=== PATIENT | male | born 1955 | race Caucasian/White ===

== ENCOUNTER 2019-11-22 15:29 | Emergency (ER) | payer MEDICARE, MEDICAID ==
[~2019-11-22] VITALS: Ht 177.8 cm; Wt 75.0 kg
[2019-11-22 17:42] LABS: BASOPHILS % 0.5 % (0.0-2.0); HEMATOCRIT. 44.5 % (42.0-52.0); HEMOGLOBIN. 15.7 g/dL (14.0-18.0); LYMPHOCYTES % 19.9 % (20.0-50.0); MEAN CORPUSCULAR HEMOGLOBIN 36.7 pg (28.0-32.0); MEAN CORPUSCULAR VOLUME 103.8 fL (80.0-94.0); MONOCYTES % 9.2 % (2.0-8.0); NEUTROPHILS % 69.4 % (40.0-76.0); PLATELET 226 x1000/uL (130-400); RED BLOOD CELL COUNT 4.29 mill/uL (4.7-6.1)
[2019-11-22 17:48] LABS: CHLORIDE 111 mEq/L (98-107)
[2019-11-22 17:51] LABS: ETHANOL BLOOD < 10 mg/dL
[2019-11-22] MEDS ORDERED: MAGNESIUM/ALUMINUM HYDROXIDE/SIMETHICONE 30ML UDC PO ONE (20:00)
[2019-11-22] MEDS ORDERED: ASPIRIN 81MG TABLET PO ONE (20:00)
[2019-11-22] MEDS ORDERED: VISCOUS LIDOCAINE 2% 15 ML UDC PO ONE (20:00)
[2019-11-22 21:44] VITALS: BP 169/91
== END 2019-11-22 21:59 | disposition home or self-care (01) ==
LOC: ER 15:29
DX: R07.89 Other chest pain (principal)
CPT/HCPCS: 36415; 71045; 80053; 80320; 83880; 84484; 85025; 93005; 99285; G0480

== ENCOUNTER 2023-07-01 12:54 | Emergency (ER) | payer MEDICARE, MEDICAID ==
[~2023-07-01] VITALS: Ht 170.2 cm; Wt 68.0 kg
[~2023-07-01 12:54] MED LIST: ABAC1TAB14 MT; ASPI-1406 MT; ATOR10TA69 MT; BUPR150T3 PO; CALC-1098 PO; GABA-529 PO; LISI10TA26 PO; [UNRECOGNIZED DRUG - CODE] IM; [UNRECOGNIZED DRUG - CODE] TP
[2023-07-01 12:58] VITALS: O2SAT 100
[2023-07-01 14:19] LABS: CLARITY URINE CLEAR (CLEAR); COLOR URINE YELLOW (YELLOW); GLUCOSE URINE NEGATIVE (NEGATIVE); KETONES URINE NEGATIVE (NEGATIVE); LEUKOCYTE ESTERASE URINE NEGATIVE (NEGATIVE); NITRITE URINE NEGATIVE (NEGATIVE); OCCULT BLOOD URINE TRACE (NEGATIVE); PROTEIN URINE TRACE (NEGATIVE); UROBILINOGEN URINE 0.2 E.U./dL (0.2-1.0)
[2023-07-01 14:24] LABS: BASOPHILS % 0.7 % (0.0-2.0); HEMATOCRIT. 45.1 % (42.0-52.0); LYMPHOCYTES % 20.3 % (20.0-50.0); MEAN CORPUSCULAR HEMOGLOBIN 32.7 pg (28.0-32.0); MEAN CORPUSCULAR HGB CONC 33.3 g/dL (31.0-37.0); MEAN CORPUSCULAR VOLUME 98.2 fL (80.0-94.0); MEAN PLATELET VOLUME 7.4 fl (7.4-10.4); MONOCYTES % 6.3 % (2.0-8.0); NEUTROPHILS % 71.7 % (40.0-76.0); PLATELET 328 x1000/uL (130-400); RED BLOOD CELL COUNT 4.59 mill/uL (4.7-6.1); RED CELL DISTRIBUTION WIDTH 14.5 % (11.6-14.6); WHITE BLOOD COUNT 7.3 x1000/uL (4.5-11.0)
[2023-07-01 14:50] LABS: ALANINE AMINOTRANSFERASE 14 IU/L (10-49); ALBUMIN 4.4 g/dL (3.2-4.8); ASPARTATE AMINOTRANSFERASE 20 IU/L (<34); BILIRUBIN TOTAL 0.8 mg/dL (0.1-1.0); CALCIUM 9.1 mg/dL (8.7-10.4); CARBON DIOXIDE 25 mEq/L (21-32); CHLORIDE 105 mEq/L (98-107); CREATININE 0.9 mg/dL (0.6-1.3); GLUCOSE 111 mg/dL (70-105); POTASSIUM 3.2 mEq/L (3.5-5.1); SODIUM 140 mEq/L (136-145); TROPONIN I HIGH SENSITIVITY 17 ng/L (3.0-53); UREA NITROGEN BLOOD 8 mg/dL (9-23)
[2023-07-01 14:53] LABS: BACTERIA URINE TRACE; RBC URINE 0-2 /hpf (0-2); SQUAMOUS EPITHELIAL CELL URINE NONE SEEN /lpf (RARE/1+); WBC URINE 0-2 /hpf (0-2)
[2023-07-01] MEDS ORDERED: HYDROCODONE/ACETAMINOPHEN 5/325MG TABLET PO ONE (16:30)
[2023-07-01] MEDS ORDERED: ASPI-986 MT (20:30)
[2023-07-01] MEDS ORDERED: NITR0.4T49 SL (20:30)
[2023-07-01] MEDS ORDERED: TOPUD MT (20:30)
[2023-07-01] MEDS ORDERED: HYDROCODONE/ACETAMINOPHEN 5/325MG TABLET PO NR (21:30)
[2023-07-01 21:32] VITALS: BP 166/92; PULSE 74; RESP 20; TEMP 98.8
[2023-07-01 21:37] LABS: TROPONIN I HIGH SENSITIVITY 14 ng/L (3.0-53)
== END 2023-07-01 21:40 | disposition home or self-care (01) ==
LOC: ER 12:54
DX: R07.9 Chest pain, unspecified (principal); I10 Essential (primary) hypertension; F19.90 Other psychoactive substance use, unspecified, uncomplicated; F10.20 Alcohol dependence, uncomplicated; Y90.9 Presence of alcohol in blood, level not specified
CPT/HCPCS: 36415; 71045; 80053; 81003; 83880; 84484; 85025; 93005; 99285

== ENCOUNTER 2023-11-02 14:00 | Inpatient (IN) | payer MEDICARE, MEDICAID ==
[~2023-11-02] VITALS: Ht 182.9 cm; Wt 65.8 kg
[2023-11-02] VITALS (16 sets, daily range): BP systolic 130–170; BP diastolic 68–84; PULSE 63–86; RESP 12–27; TEMP 98.5
[~2023-11-02 14:00] MED LIST changes: +ASPI-986 MT; +CYCLO LEFTEYE; +GATI2.5D8 RIGHTEYE; +NEOM7.5D8 LEFTEYE; +NITR0.4T49 SL; +PRED5DRO22 LEFTEYE; +TOPUD MT
[2023-11-02] MEDS: DILTIAZEM HCL 5MG/ML 5ML VIAL IV ONE (14:41)
[2023-11-02] MEDS: DILTIAZEM HCL 125 MG in DEXT 5% WATER 100 ML IV ONE (15:29)
[2023-11-02 15:58] LABS: CHLORIDE 111 mEq/L (98-107); POTASSIUM 3.7 mEq/L (3.5-5.1); SODIUM 140 mEq/L (136-145)
[2023-11-02 15:59] LABS: CARBON DIOXIDE 21 mEq/L (21-32)
[2023-11-02 16:00] LABS: CALCIUM 9.6 mg/dL (8.7-10.4)
[2023-11-02 16:02] LABS: BASOPHILS % 1.1 % (0.0-2.0); DIFFERENTIAL COMMENT 0; HEMATOCRIT. 38.7 % (42.0-52.0); HEMOGLOBIN. 13.3 g/dL (14.0-18.0); LYMPHOCYTES % 15.5 % (20.0-50.0); MEAN CORPUSCULAR HEMOGLOBIN 35.7 pg (28.0-32.0); MEAN CORPUSCULAR HGB CONC 34.3 g/dL (31.0-37.0); MEAN CORPUSCULAR VOLUME 104.2 fL (80.0-94.0); MEAN PLATELET VOLUME 7.7 fl (7.4-10.4); MONOCYTES % 7.6 % (2.0-8.0); NEUTROPHILS % 74.8 % (40.0-76.0); PLATELET 280 x1000/uL (130-400); RED BLOOD CELL COUNT 3.71 mill/uL (4.7-6.1); RED CELL DISTRIBUTION WIDTH 14.8 % (11.6-14.6); WHITE BLOOD COUNT 7.6 x1000/uL (4.5-11.0)
[2023-11-02 16:04] LABS: CREATININE 0.9 mg/dL (0.6-1.3); GLUCOSE 121 mg/dL (70-105); UREA NITROGEN BLOOD 13 mg/dL (9-23)
[2023-11-02 16:06] LABS: TROPONIN I HIGH SENSITIVITY 29 ng/L (3.0-53)
[2023-11-02 16:22] LABS: INR 0.9; PROTHROMBIN TIME 10.2 sec (9.6-11.0)
[2023-11-02 17:03] LABS: TROPONIN I HIGH SENSITIVITY 30 ng/L (3.0-53)
[2023-11-02 20:31] LABS: TROPONIN I HIGH SENSITIVITY 25 ng/L (3.0-53)
[2023-11-03] VITALS (71 sets, daily range): BP systolic 115–156; BP diastolic 63–99; PULSE 57–92; RESP 12–30; TEMP 98.2–98.5
[2023-11-03] MEDS: DILTIAZEM HCL 30MG TABLET PO SCH (00:13)
[2023-11-03 06:14] LABS: BASOPHILS % 0.8 % (0.0-2.0); DIFFERENTIAL COMMENT 0; HEMATOCRIT. 35.6 % (42.0-52.0); HEMOGLOBIN. 12.1 g/dL (14.0-18.0); LYMPHOCYTES % 28.9 % (20.0-50.0); MEAN CORPUSCULAR HEMOGLOBIN 35.5 pg (28.0-32.0); MEAN CORPUSCULAR VOLUME 104.3 fL (80.0-94.0); MEAN PLATELET VOLUME 7.9 fl (7.4-10.4); MONOCYTES % 8.5 % (2.0-8.0); NEUTROPHILS % 59.8 % (40.0-76.0); PLATELET 257 x1000/uL (130-400); RED BLOOD CELL COUNT 3.42 mill/uL (4.7-6.1); WHITE BLOOD COUNT 5.8 x1000/uL (4.5-11.0)
[2023-11-03 06:36] LABS: CHLORIDE 108 mEq/L (98-107); POTASSIUM 3.3 mEq/L (3.5-5.1); SODIUM 138 mEq/L (136-145)
[2023-11-03 06:40] LABS: CARBON DIOXIDE 23 mEq/L (21-32)
[2023-11-03 06:42] LABS: CALCIUM 9.4 mg/dL (8.7-10.4)
[2023-11-03 06:47] LABS: CREATININE 0.9 mg/dL (0.6-1.3); GLUCOSE 89 mg/dL (70-105); TRIGLYCERIDE 74 mg/dL (0-150); UREA NITROGEN BLOOD 9 mg/dL (9-23)
[2023-11-03 06:48] LABS: LDL CHOLESTEROL 35 mg/dL (5-100)
[2023-11-03 06:49] LABS: CHOLESTEROL 192 mg/dL (<200); PHOSPHORUS 3.3 mg/dL (2.5-4.9)
[2023-11-03 09:03] LABS: HDL CHOLESTEROL 137 mg/dL (>55)
[2023-11-03] MEDS: APIXABAN 5 MG TABLET PO SCH (09:21)
[2023-11-03] MEDS: ASPIRIN 81MG TABLET PO SCH (09:22)
[2023-11-03] MEDS ORDERED: ONDANSETRON HCL 4MG/2ML INJ IV PRN (10:00)
[2023-11-03] MEDS ORDERED: DOCUSATE SODIUM 100MG CAPSULE PO PRN (10:00)
[2023-11-03] MEDS ORDERED: ACETAMINOPHEN 325MG TABLET PO PRN (10:00)
[2023-11-03] MEDS ORDERED: IPRATROPIUM/ALBUTEROL 0.5-3(2.5)MG/3ML NEB HHN PRN (10:00)
[2023-11-03] MEDS: POTASSIUM CHLORIDE 20MEQ TABLET SR PO NR (11:22)
[2023-11-03 11:27] LABS: T4 FREE 1.17 ng/dL (0.89-1.76)
[2023-11-03 11:28] LABS: THYROID STIMULATING HORMONE 0.66 uIU/mL (0.55-4.78)
[2023-11-03] MEDS: ACETAMINOPHEN 325MG TABLET PO PRN (19:31)
[2023-11-03] MEDS: HYDROCODONE/ACETAMINOPHEN 7.5/325MG TABLET PO PRN (21:06)
[2023-11-04] VITALS (19 sets, daily range): BP systolic 93–149; BP diastolic 65–85; PULSE 55–89; RESP 12–22; TEMP 97.5–98.9
[2023-11-04 08:52] LABS: DIFFERENTIAL COMMENT 0; EOSINOPHILS % 3.1 % (0.0-5.0); HEMATOCRIT. 39.5 % (42.0-52.0); HEMOGLOBIN. 13.5 g/dL (14.0-18.0); LYMPHOCYTES % 24.8 % (20.0-50.0); MEAN CORPUSCULAR HEMOGLOBIN 34.9 pg (28.0-32.0); MEAN CORPUSCULAR VOLUME 102.6 fL (80.0-94.0); MEAN PLATELET VOLUME 7.9 fl (7.4-10.4); MONOCYTES % 7.4 % (2.0-8.0); NEUTROPHILS % 63.7 % (40.0-76.0); PLATELET 245 x1000/uL (130-400); RED BLOOD CELL COUNT 3.85 mill/uL (4.7-6.1); RED CELL DISTRIBUTION WIDTH 14.9 % (11.6-14.6); WHITE BLOOD COUNT 6.1 x1000/uL (4.5-11.0)
[2023-11-04 08:56] LABS: CARBON DIOXIDE 26 mEq/L (21-32); CHLORIDE 105 mEq/L (98-107); POTASSIUM 3.8 mEq/L (3.5-5.1); SODIUM 140 mEq/L (136-145)
[2023-11-04 08:57] LABS: CALCIUM 9.6 mg/dL (8.7-10.4)
[2023-11-04 09:01] LABS: CREATININE 0.8 mg/dL (0.6-1.3)
[2023-11-04 09:02] LABS: GLUCOSE 94 mg/dL (70-105); UREA NITROGEN BLOOD 10 mg/dL (9-23)
[2023-11-04] MEDS ORDERED: DILT240C96 PO (14:26)
[2023-11-04] MEDS ORDERED: DOCU-347 PO (14:26)
[2023-11-04] MEDS ORDERED: FLUT16SP15 NS (14:26)
[2023-11-04] MEDS ORDERED: PANT40TA51 PO (14:26)
[2023-11-04] MEDS ORDERED: BUPR-114 PO (14:26)
[2023-11-04] MEDS ORDERED: FERR325T30 PO (14:26)
[2023-11-04] MEDS ORDERED: APIX5TAB PO (14:26)
[2023-11-04] MEDS ORDERED: LISI20TA31 PO (14:26)
[2023-11-04] MEDS ORDERED: GABA-529 PO (14:27)
[2023-11-04] MEDS ORDERED: NALOXONE HCL 0.4MG/ML VIAL IV PRN (14:30)
[2023-11-04] MEDS: TRIUMEQ PO SCH (16:52)
[2023-11-05] VITALS: BP 99/66; PULSE 76; RESP 17; TEMP 97.5
[2023-11-05 04:00] VITALS: BP 114/78; PULSE 68; RESP 17; TEMP 97.8
[2023-11-05 08:00] VITALS: BP 119/75; PULSE 79; RESP 18; TEMP 98.1
[2023-11-05 09:19] VITALS: BP 115/74; PULSE 71; TEMP 98; O2SAT 99
[2023-11-05 12:00] VITALS: BP 108/71; PULSE 71; RESP 18; TEMP 97.9
[2023-11-05 15:27] LABS: *AMPHETAMINES SCREEN URINE NEGATIVE (NEGATIVE); *BARBITURATES SCREEN URINE NEGATIVE (NEGATIVE); *BENZODIAZEPINES SCREEN URINE NEGATIVE (NEGATIVE); *COCAINE SCREEN URINE NEGATIVE (NEGATIVE)
[2023-11-05 15:28] LABS: CANNABINOID URINE SCREEN NEGATIVE (NEGATIVE); ECSTASY MDMA SCREEN URINE NEGATIVE (NEGATIVE); METHADONE URINE SCREEN NEGATIVE (NEGATIVE); OPIATES URINE SCREEN NEGATIVE (NEGATIVE); PHENCYCLIDINE URINE SCREEN NEGATIVE (NEGATIVE)
== END 2023-11-05 12:51 | disposition home or self-care (01) | DRG 310 ==
LOC: ER 14:00 → EDBEDREQ 15:45 → CVICU 20:22 → 8WST 11-04 17:22
PROVIDERS: ADMIT Internal Medicine; ATTEND Internal Medicine
DX: I48.0 Paroxysmal atrial fibrillation (principal); I47.10 Supraventricular tachycardia, unspecified; E78.5 Hyperlipidemia, unspecified; Z96.659 Presence of unspecified artificial knee joint; D64.9 Anemia, unspecified; F10.10 Alcohol abuse, uncomplicated; I10 Essential (primary) hypertension; J43.9 Emphysema, unspecified; Z79.01 Long term (current) use of anticoagulants; Z90.49 Acquired absence of other specified parts of digestive tract; Z85.038 Personal history of other malignant neoplasm of large intestine
CPT/HCPCS: 36415; 71045; 80048; 80061; 80305; 83735; 83880; 84100; 84439; 84443; 84480; 84484; 85025; 86705; 93005; 93306; 99285; J3490; J7060

== ENCOUNTER 2024-01-01 08:02 | Emergency (ER) | payer MEDICARE, MEDICAID ==
[~2024-01-01] VITALS: Ht 182.9 cm; Wt 90.0 kg
[~2024-01-01 08:02] MED LIST changes: +APIX5TAB PO; -ASPI-986 MT; +BUPR-114 PO; -BUPR150T3 PO; -CALC-1098 PO; -CYCLO LEFTEYE; +DILT240C96 PO; +DOCU-347 PO; +FERR325T30 PO; +FLUT16SP15 NS; -GATI2.5D8 RIGHTEYE; -LISI10TA26 PO; +LISI20TA31 PO; -NEOM7.5D8 LEFTEYE; -NITR0.4T49 SL; +PANT40TA51 PO; -PRED5DRO22 LEFTEYE; -TOPUD MT; -[UNRECOGNIZED DRUG - CODE] IM; -[UNRECOGNIZED DRUG - CODE] TP
[2024-01-01 08:04] VITALS: O2SAT 99
[2024-01-01 08:58] LABS: CARBON DIOXIDE 22 mEq/L (21-32); CHLORIDE 108 mEq/L (98-107); POTASSIUM 3.9 mEq/L (3.5-5.1); SODIUM 139 mEq/L (136-145)
[2024-01-01 08:59] LABS: CALCIUM 8.9 mg/dL (8.7-10.4)
[2024-01-01 09:01] LABS: BASOPHILS % 0.5 % (0.0-2.0); DIFFERENTIAL COMMENT 0; EOSINOPHILS % 2.6 % (0.0-5.0); HEMATOCRIT. 38.8 % (42.0-52.0); LYMPHOCYTES % 17.7 % (20.0-50.0); MEAN CORPUSCULAR HEMOGLOBIN 35.2 pg (28.0-32.0); MEAN CORPUSCULAR HGB CONC 33.6 g/dL (31.0-37.0); MEAN CORPUSCULAR VOLUME 104.8 fL (80.0-94.0); MEAN PLATELET VOLUME 8.1 fl (7.4-10.4); MONOCYTES % 6.5 % (2.0-8.0); NEUTROPHILS % 72.7 % (40.0-76.0); PLATELET 270 x1000/uL (130-400); RED CELL DISTRIBUTION WIDTH 14.2 % (11.6-14.6); WHITE BLOOD COUNT 10.7 x1000/uL (4.5-11.0)
[2024-01-01 09:02] LABS: PARTIAL THROMBOPLASTIN TIME 29.6 sec (23.4-31.0)
[2024-01-01 09:04] LABS: CREATININE 0.9 mg/dL (0.6-1.3); GLUCOSE 107 mg/dL (70-105); TROPONIN I HIGH SENSITIVITY 6 ng/L (3.0-53); UREA NITROGEN BLOOD 10 mg/dL (9-23)
[2024-01-01 09:14] LABS: ETHANOL BLOOD < 10 mg/dL (<10)
[2024-01-01] MEDS: CEFTRIAXONE 1GM/50ML 50 ML IV ONE (10:43)
[2024-01-01 11:43] LABS: CLARITY URINE CLEAR (CLEAR); COLOR URINE YELLOW (YELLOW); GLUCOSE URINE NEGATIVE (NEGATIVE); KETONES URINE NEGATIVE (NEGATIVE); LEUKOCYTE ESTERASE URINE NEGATIVE (NEGATIVE); NITRITE URINE NEGATIVE (NEGATIVE); OCCULT BLOOD URINE 1+ (NEGATIVE); PROTEIN URINE TRACE (NEGATIVE); SPECIFIC GRAVITY URINE 1.019 (1.005-1.030); UROBILINOGEN URINE 0.2 E.U./dL (0.2-1.0)
[2024-01-01 11:53] LABS: BACTERIA URINE FEW; RBC URINE 15-25 /hpf (0-2); SQUAMOUS EPITHELIAL CELL URINE NONE SEEN /lpf (RARE/1+); WBC URINE 0-2 /hpf (0-2); YEAST URINE NONE SEEN
[2024-01-01 11:57] LABS: *AMPHETAMINES SCREEN URINE NEGATIVE (NEGATIVE); *BARBITURATES SCREEN URINE NEGATIVE (NEGATIVE); *BENZODIAZEPINES SCREEN URINE NEGATIVE (NEGATIVE); *COCAINE SCREEN URINE NEGATIVE (NEGATIVE); CANNABINOID URINE SCREEN NEGATIVE (NEGATIVE); ECSTASY MDMA SCREEN URINE NEGATIVE (NEGATIVE); METHADONE URINE SCREEN NEGATIVE (NEGATIVE); OPIATES URINE SCREEN NEGATIVE (NEGATIVE); PHENCYCLIDINE URINE SCREEN NEGATIVE (NEGATIVE)
[2024-01-01] MEDS: AZITHROMYCIN 500MG/250ML 250 ML IV ONE (13:09)
[2024-01-01 13:28] LABS: TROPONIN I HIGH SENSITIVITY 6 ng/L (3.0-53)
[2024-01-01] MEDS ORDERED: AMOX1TAB16 MT (14:33)
[2024-01-01] MEDS ORDERED: AZIT250T12 MT (14:33)
[2024-01-01 16:20] VITALS: BP 149/76; PULSE 52; RESP 17; TEMP 98.7
== END 2024-01-01 16:28 | disposition home or self-care (01) ==
LOC: ER 08:02
DX: J18.9 Pneumonia, unspecified organism (principal); I10 Essential (primary) hypertension; I48.91 Unspecified atrial fibrillation; Z79.899 Other long term (current) drug therapy; Z79.82 Long term (current) use of aspirin
CPT/HCPCS: 80305; 80048; 81003; 80320; 83880; 83690; 85025; 85610; 85730; 84484; 36415; 71045; 93005; 96367; 96365; 99285; J0456; J0696; G0480